=== PATIENT | male | born 1995 | race African-American/Black ===

== ENCOUNTER 2023-02-19 01:53 | Emergency (ER) | payer OTHER ==
[~2023-02-19] VITALS: Ht 188 cm; Wt 73.5 kg
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
[2023-02-19] MEDS ORDERED: LIDOCAINE HCL/MPF 1% 30 ML VIAL IJ ONE (02:44)
[2023-02-19] MEDS ORDERED: TDAP [DIPH/PERTUSSIS/TET] 0.5 ML VIAL IM ONE ×2 (02:49→03:00)
--- NOTE | 2023-02-19 03:23 | NUR ---
Patient discharged to [facility] custody in stable condition. Written and verbal after care instructions given. Patient verbalizes understanding of instruction.
[2023-02-19 05:27] VITALS: BP 137/84
== END 2023-02-19 05:27 ==
LOC: ER 01:55
DX: S01.511A Laceration without foreign body of lip, initial encounter (principal); Z60.2 Problems related to living alone; W22.8XXA Striking against or struck by other objects, initial encounter; Y93.89 Activity, other specified; Y92.89 Other specified places as the place of occurrence of the external cause; Y99.8 Other external cause status
CPT/HCPCS: 99283; 12011; 90471; 90715; A6403; J3490